=== PATIENT | female | born 1955 | race Caucasian/White ===

== ENCOUNTER 2016-08-04 11:59 | Emergency (ER) | payer MEDICARE, MEDICAID ==
[2016-08-04] MEDS ORDERED: Morphine Sulfate 2 MG/ML SYRINGE ONE (12:42)
[2016-08-04] MEDS ORDERED: Promethazine HCl 25 MG/ML VIAL ONE (12:42)
== END 2016-08-04 13:21 | disposition home or self-care (01) ==
LOC: BURERS 11:59
DX: M62.830 Muscle spasm of back (principal); G89.4 Chronic pain syndrome; J44.9 Chronic obstructive pulmonary disease, unspecified; I11.0 Hypertensive heart disease with heart failure; I50.9 Heart failure, unspecified; Z86.73 Personal history of transient ischemic attack (TIA), and cerebral infarction without residual deficits; F17.210 Nicotine dependence, cigarettes, uncomplicated; Z79.899 Other long term (current) drug therapy
CPT/HCPCS: 96372; J2270; J2550

== ENCOUNTER 2016-08-12 19:19 | Emergency (ER) | payer MEDICARE, MEDICAID ==
[2016-08-12 20:08] LABS: #Basophils 0.1 thou/uL (0.0-0.2); #Eosinphils 0.3 thou/uL (0.0-0.7); #Monocytes 0.7 thou/uL (0.11-0.59); %Basophils 0.9 % (0.0-1.0); %Eosinophils 4.4 % (0.0-10.0); %Monocytes 11.3 % (0.0-10.0); Hematocrit 34.2 % (36.0-47.0); Mean Platelet Volume 6.3 fL (7.4-10.4); Red Blood Cell (RBC) Count 3.83 mill/uL (4.20-5.40); White Blood Cell (WBC) Count 5.9 thou/uL (4.8-10.8)
[2016-08-12 20:26] LABS: ALT (SGPT) 19 U/L (0-55); AST (SGOT) 17 U/L (5-34); Alkaline Phosphatase 177 U/L (40-150); Anion Gap 15 mmol/L (10-20); BUN (Urea Nitrogen) 26 mg/dL (9.8-20.1); Bilirubin, Total 0.2 mg/dL (0.2-1.2); Calc. Creatinine Clearance 0 mL/min (70-130); Calcium 8.7 mg/dL (7.8-10.44); Carbon Dioxide 24 mmol/L (22-29); Chloride 106 mmol/L (98-107); Estimated GFR-MDRD 47; Globulin 3.4 g/dL (2.4-3.5); Protein, Total 6.6 g/dL (6.0-8.3)
[2016-08-12 20:30] LABS: Bilirubin Negative (Negative); Blood, Urine Trace (Negative); Glucose, Urine (Dipstick) Negative (Negative); Ketone, Urine Negative (Negative); Nitrite Positive (Negative); Protein, Urine (Dipstick) 100 mg/dL (Neg-Trace); Urobilinogen 0.2 mg/dL (0.2-1.0)
[2016-08-12 20:47] LABS: Bacteria/HPF 4+ HPF (None Seen); Oval Fat Bodies/HPF None Seen HPF (None Seen); Renal Epithelial None Seen HPF (0-3); Sperm/HPF None Seen HPF (None Seen); Squamous Epithelial None Seen HPF (0-3); Transitional Epithelial NONE SEEN HPF (0-3); Trichomonas/HPF None Seen HPF (None Seen); Yeast-All Forms None Seen HPF (None Seen)
[2016-08-12 20:48] LABS: Hyaline Casts/LPF NONE SEEN LPF (0-3 Hyaline)
[2016-08-12] MEDS ORDERED: Ciprofloxacin 500 MG TAB ONE (21:55)
[2016-08-12] MEDS ORDERED: cefTRIAXone\\ROCEPHIN 1 GM VIAL ONE (21:56)
== END 2016-08-12 22:55 | disposition home or self-care (01) ==
LOC: BURERS 19:19
DX: N39.0 Urinary tract infection, site not specified (principal); G89.29 Other chronic pain; J44.9 Chronic obstructive pulmonary disease, unspecified; I50.9 Heart failure, unspecified; I11.0 Hypertensive heart disease with heart failure; F17.210 Nicotine dependence, cigarettes, uncomplicated; Z86.73 Personal history of transient ischemic attack (TIA), and cerebral infarction without residual deficits
CPT/HCPCS: 80053; 81003; 81015; 85025; 87040; 87086; 96372; J0696

== ENCOUNTER 2016-08-17 15:16 | Outpatient (CLI) | payer MEDICARE, MEDICAID ==
--- NOTE | 2016-08-17 19:37 | RAD ---
There is a compression of one of the upper thoracic vertebra, approximately T4, with resulting dorsa l kyphosis. While it is difficult to compare exactly, the degree of compression seems comparable to the prior exam. There is a little bit of compression of the vertebrae above it, but again, the appea reese really has not changed overtime. The bones are osteopenic. I do not see new fractures. IMPRESSION: Upper thoracic compression as has been mentioned previously. No gross change since last year. The re sulting kyphotic deformity and amount that T3 rides anterior to T4 is impressive, but about the same as before. POS: HOME
--- NOTE | 2016-08-17 19:45 | RAD ---
CHEST TWO VIEWS: 08/17/16 Comparison is made with a 11/12/15 study. The heart is normal in size. COPD is noted as usual with flattening of the diaphragm. No acute infil trate or effusion was seen. The thoracic compression fracture is again noted as on prior films. The degree of compression and slippage of the upper vertebrae, approximately T3 on T4 seems substantial but not markedly different than before. IMPRESSION: 1. COPD with no acute findings. 2. Substantial thoracic compression though similar to last year's chest x-ray. POS: HOME
== END 2016-08-17 15:17 | disposition home or self-care (01) ==
LOC: BURRAD 15:16
PROVIDERS: ATTEND Family Medicine
DX: M54.6 Pain in thoracic spine (principal); J44.9 Chronic obstructive pulmonary disease, unspecified
CPT/HCPCS: 71020; 72070

== ENCOUNTER 2017-03-07 13:10 | Outpatient (CLI) | payer MEDICARE, MEDICAID ==
[2017-03-07 13:44] LABS: ALT (SGPT) 11 U/L (8-55); AST (SGOT) 15 U/L (5-34); Alkaline Phosphatase 97 U/L (40-150); Anion Gap 15 mmol/L (10-20); BUN (Urea Nitrogen) 33 mg/dL (9.8-20.1); Bilirubin, Total 0.3 mg/dL (0.2-1.2); Calc. Creatinine Clearance 0 mL/min (70-130); Calcium 9.5 mg/dL (7.8-10.44); Carbon Dioxide 23 mmol/L (22-29); Cardiac Risk 3.5 (Less than 4.5); Chloride 110 mmol/L (98-107); Cholesterol 183 mg/dl (< 200 Desired); Estimated GFR-MDRD 74; Glucose 82 mg/dL (70-105); HDL Cholesterol 53 mg/dL (>60 Neg Risk); LDL Cholesterol, Calculated 107 mg/dL; Potassium 5.6 mmol/L (3.5-5.1); Sodium 142 mmol/L (136-145); Triglycerides 113 mg/dL (Less than 150)
[2017-03-07 13:47] LABS: #Basophils 0.1 thou/uL (0.0-0.2); #Eosinphils 0.3 thou/uL (0.0-0.7); #Lymphocytes 2.1 thou/uL (1.20-3.40); #Monocytes 0.4 thou/uL (0.11-0.59); #Neutrophils 2.9 thou/uL (1.40-6.50); %Basophils 1.6 % (0.0-1.0); %Eosinophils 4.6 % (0.0-10.0); %Lymphocytes 36.5 % (21.0-51.0); %Monocytes 7.2 % (0.0-10.0); %Neutrophils 50.1 % (42.0-75.0); Hemoglobin 11.9 g/dL (12.0-16.0); Mean Corpuscular Hemoglobin 28.2 pg (27.0-31.0); Mean Corpuscular Volume 88.3 fl (81.0-99.0); Mean Platelet Volume 6.7 fL (7.4-10.4); Platelet Count 194 thou/uL (130-400); RBC Distribution Width 13.8 % (11.5-14.5); Red Blood Cell (RBC) Count 4.23 mill/uL (4.20-5.40); White Blood Cell (WBC) Count 5.7 thou/uL (4.8-10.8)
== END 2017-03-07 13:11 | disposition home or self-care (01) ==
LOC: HPCALD 13:10
PROVIDERS: ATTEND Family Medicine
DX: I10 Essential (primary) hypertension (principal)
CPT/HCPCS: 36415; 80053; 80061; 84443; 85025

== ENCOUNTER 2017-09-29 22:24 | Emergency (ER) | payer MEDICARE, MEDICAID ==
[2017-09-29 23:24] LABS: #Basophils 0.1 thou/uL (0.0-0.2); #Eosinphils 0.1 thou/uL (0.0-0.7); #Lymphocytes 0.7 thou/uL (1.20-3.40); #Monocytes 0.5 thou/uL (0.11-0.59); #Neutrophils 7.7 thou/uL (1.40-6.50); %Basophils 0.9 % (0.0-1.0); %Eosinophils 1.5 % (0.0-10.0); %Lymphocytes 7.9 % (21.0-51.0); %Monocytes 5.8 % (0.0-10.0); %Neutrophils 83.9 % (42.0-75.0); Hemoglobin 11.9 g/dL (12.0-16.0); Mean Corpuscular HGB CONC 32.4 g/dL (32.0-36.0); Mean Corpuscular Hemoglobin 27.1 pg (27.0-31.0); Mean Corpuscular Volume 83.6 fl (81.0-99.0); Mean Platelet Volume 7.6 fL (7.4-10.4); Platelet Count 163 thou/uL (130-400); RBC Distribution Width 13.9 % (11.5-14.5); Red Blood Cell (RBC) Count 4.41 mill/uL (4.20-5.40); White Blood Cell (WBC) Count 9.2 thou/uL (4.8-10.8)
[2017-09-29 23:28] LABS: PTT 34.9 SEC (22.9-36.1); Prothrombin Time 12.9 SEC (12.0-14.7)
--- NOTE | 2017-09-29 23:30 | RAD ---
PORTABLE CHEST: 09/29/17 Comparison is made with the 08/11/17 study done at [facility]. The lungs are hyperexpanded as usual. No lobar infiltrate or effusion was seen. There is actually les s prominence of the basilar markings today than before. There are no congestive changes or increase i n heart size. IMPRESSION: Hyperexpanded lungs but no acute findings otherwise. POS: HOME
[2017-09-29 23:33] LABS: Bilirubin Negative (Negative); Blood, Urine Moderate (Negative); Clarity Cloudy (Clear); Glucose, Urine (Dipstick) Negative (Negative); Leukocyte Large (Negative); Nitrite Positive (Negative); Protein, Urine (Dipstick) 100 mg/dL (Neg-Trace); Specific Gravity, Urine 1.015 (1.005-1.030); Urobilinogen 0.2 mg/dL (0.2-1.0); pH, Urine 5.5 (5.0-9.0)
[2017-09-29 23:38] LABS: ALT (SGPT) 12 U/L (8-55); AST (SGOT) 16 U/L (5-34); Alkaline Phosphatase 68 U/L (40-150); Anion Gap 16 mmol/L (10-20); BUN (Urea Nitrogen) 27 mg/dL (9.8-20.1); Bilirubin, Total 0.6 mg/dL (0.2-1.2); Calc. Creatinine Clearance 0 mL/min (70-130); Calcium 9.7 mg/dL (7.8-10.44); Carbon Dioxide 19 mmol/L (23-31); Chloride 108 mmol/L (98-107); Estimated GFR-MDRD 66; Globulin 3.1 g/dL (2.4-3.5); Glucose 97 mg/dL (80-115); Lipase 18 U/L (8-78); Potassium 5.5 mmol/L (3.5-5.1); Protein, Total 7.1 g/dL (6.0-8.3); Sodium 137 mmol/L (136-145)
[2017-09-29 23:39] LABS: CKMB 1.3 ng/mL (0-6.6); Troponin I Less than 0.010 ng/mL (< 0.028)
[2017-09-29 23:42] LABS: Bacteria/HPF 2+ HPF (None Seen); RBC/HPF 0-3 HPF (0-3); Squamous Epithelial 0-3 HPF (0-3)
[2017-09-29] MEDS ORDERED: Nitrofurantoin Monohyd/M-Cryst 100 MG CAP PO SCH (23:45)
[2017-09-29] MEDS ORDERED: cefTRIAXone\\ROCEPHIN 1 GM VIAL ONE (23:51)
== END 2017-09-30 00:33 | disposition home or self-care (01) ==
LOC: BURERS 22:24
DX: N12 Tubulo-interstitial nephritis, not specified as acute or chronic (principal); E87.5 Hyperkalemia; J43.9 Emphysema, unspecified; I11.0 Hypertensive heart disease with heart failure; I50.9 Heart failure, unspecified; F17.210 Nicotine dependence, cigarettes, uncomplicated; Z79.899 Other long term (current) drug therapy; Z86.73 Personal history of transient ischemic attack (TIA), and cerebral infarction without residual deficits
CPT/HCPCS: 71045; 80053; 81003; 81015; 82553; 83605; 83690; 83880; 84484; 85025; 85610; 85730; 87040; 87086; 87149; 93005; 96372; J0696

== ENCOUNTER 2018-03-26 15:41 | Inpatient (IN) | payer MEDICARE, MEDICAID ==
[2018-03-26] MEDS ORDERED: Albuterol Sulfate 2.5 mg/3 ml Neb ONE (16:45)
[2018-03-26] MEDS ORDERED: Magnesium Sulfate 2 GM/100 ML BAG ONE (16:45)
[2018-03-26 16:47] LABS: #Basophils 0.1 thou/uL (0.0-0.2); #Eosinphils 0.2 thou/uL (0.0-0.7); #Lymphocytes 1.1 thou/uL (1.20-3.40); #Monocytes 0.4 thou/uL (0.11-0.59); #Neutrophils 3.9 thou/uL (1.40-6.50); %Basophils 1.6 % (0.0-1.0); %Eosinophils 3.3 % (0.0-10.0); %Lymphocytes 18.5 % (21.0-51.0); %Monocytes 7.8 % (0.0-10.0); %Neutrophils 68.9 % (42.0-75.0); Hemoglobin 10.3 g/dL (12.0-16.0); Mean Corpuscular HGB CONC 32.2 g/dL (32.0-36.0); Mean Corpuscular Volume 83.7 fL (78.0-98.0); Mean Platelet Volume 8.4 fL (7.4-10.4); Platelet Count 184 thou/uL (130-400); RBC Distribution Width 13.5 % (11.5-14.5); Red Blood Cell (RBC) Count 3.82 mill/uL (4.20-5.40); White Blood Cell (WBC) Count 5.7 thou/uL (4.8-10.8)
[2018-03-26 16:55] LABS: ALT (SGPT) 16 U/L (8-55); AST (SGOT) 20 U/L (5-34); Albumin 3.6 g/dL (3.4-4.8); Alkaline Phosphatase 82 U/L (40-150); Anion Gap 14 mmol/L (10-20); BUN (Urea Nitrogen) 33 mg/dL (9.8-20.1); Bilirubin, Total 0.2 mg/dL (0.2-1.2); Calc. Creatinine Clearance 0 mL/min (70-130); Calcium 9.1 mg/dL (7.8-10.44); Carbon Dioxide 21 mmol/L (23-31); Chloride 111 mmol/L (98-107); Estimated GFR-MDRD 41; Globulin 2.9 g/dL (2.4-3.5); Glucose 83 mg/dL (80-115); Potassium 4.1 mmol/L (3.5-5.1); Protein, Total 6.5 g/dL (6.0-8.3); Sodium 142 mmol/L (136-145)
[2018-03-26 16:57] LABS: CKMB 1.8 ng/mL (0-6.6); Troponin I Less than 0.010 ng/mL (< 0.028)
[2018-03-26] MEDS ORDERED: Albuterol Sulfate 1.25 MG/3 ML NEB ONE (17:39)
[2018-03-26] MEDS ORDERED: Ketorolac Tromethamine 30 MG/ML VIAL ONE (17:39)
[2018-03-26] MEDS ORDERED: methylPREDNISolone Sod Succ/PF 125 MG/2 ML VIAL ONE (17:40)
[2018-03-26] MEDS ORDERED: Fentanyl 100 MCG/2 ML VIAL ONE (18:32)
--- NOTE | 2018-03-26 19:28 | RAD ---
PORTABLE CHEST: 03/26/2018 COMPARISON: 09/29/2017 FINDINGS: The lungs are hyperexpanded, consistent with COPD. No lobar consolidation or effusion is seen. Some minor lingular streaking may be scarring and is no different than before. There is no congestive ch moises. The trachea is midline. IMPRESSION: Chronic obstructive pulmonary disease but no acute finding. POS: HOME
[2018-03-26 19:29] VITALS: BMI 24.4
[2018-03-26] MEDS ORDERED: Acetaminophen/Codeine 30-300mg Tablet PO PRN (20:34)
[2018-03-26] MEDS ORDERED: Diazepam 5 MG TAB PO PRN (20:35)
[2018-03-26] MEDS ORDERED: Ondansetron ODT 4 MG TAB SL PRN (20:37)
[2018-03-26] MEDS ORDERED: Ondansetron HCl/PF 4 MG/2 ML Vial IVP PRN (20:37)
[2018-03-26] MEDS ORDERED: Acetaminophen 325 MG TAB PO PRN (20:37)
[2018-03-26 20:40] LABS: Clarity Cloudy (Clear); Leukocyte Large (Negative); Nitrite Negative (Negative)
[2018-03-26 20:41] LABS: Bilirubin Negative (Negative); Blood, Urine Negative (Negative); Glucose, Urine (Dipstick) Negative (Negative); Protein, Urine (Dipstick) 100 mg/dL (Neg-Trace); Urobilinogen 0.2 mg/dL (0.2-1.0)
[2018-03-26 20:44] LABS: Bacteria/HPF 4+ HPF (None Seen); Crystals/HPF None Seen HPF (Negative); Hyaline Casts/LPF NONE SEEN LPF (0-3 Hyaline); Other Casts/LPF None Seen LPF (0-3 Hyaline); Oval Fat Bodies/HPF None Seen HPF (None Seen); RBC/HPF None Seen HPF (0-3); Renal Epithelial None Seen HPF (0-3); Sperm/HPF None Seen HPF (None Seen); Squamous Epithelial None Seen HPF (0-3); Transitional Epithelial NONE SEEN HPF (0-3); Trichomonas/HPF None Seen HPF (None Seen); Yeast-All Forms None Seen HPF (None Seen)
[2018-03-26] MEDS ORDERED: Albuterol Sulfate 2.5 mg/3 ml Neb NEB PRN (20:46)
[2018-03-26] MEDS ORDERED: Dextrose 5 %-0.45 % NaCl 1,000 ML IV SCH (21:00)
[2018-03-26] MEDS ORDERED: Azithromycin 250 MG TAB PO SCH (21:15)
[2018-03-26] MEDS: methylPREDNISolone Sod Succ/PF 125 MG/2 ML VIAL IVP SCH (22:21)
--- NOTE | 2018-03-26 23:08 | HP ---
CHIEF COMPLAINT: Back pain and shortness of breath. HISTORY OF PRESENT ILLNESS: Ms. Howe is a 62-year-old female with past medical history of bilateral paraplegia status post bilateral total hip amputation ileal conduit for urine and colostomy, who presented to the emergency department this afternoon with a chief complaint of right upper thoracic intractable back pain. Upon presentation, patient was also experiencing shortness of breath and hypoxia. She has a history of COPD and uses oxygen at night and as needed during the day with activity. She is also a smoker. She has a history of osteoarthritis and thoracic compression fracture with recurrent right upper thoracic/scapular pain that worsens with deep inspiration. Apparently, this worsened over the last week and became intractable. She usually has her pain relieved with codeine and Valium, but ran out at home. She has medication intolerance to HYDROCODONE, which causes emesis. She has a nebulizer that she uses p.r.n. and she has a history of noncompliance with her medications and office visits. In the emergency department, the patient's pain was treated with Toradol and Fentanyl. She was given back to back neb treatments, IV Solu-Medrol, and magnesium sulfate with improvement of hypoxia and wheezing. She has been admitted for acute COPD exacerbation with acute on chronic hypoxia. PAST MEDICAL HISTORY: 1. Paraplegia, 2. Status post bilateral hip amputation. 3. Status post ileal conduit for urine. 4. Status post colostomy. 5. History of sacral decubitus ulcers, currently healed. 6. Chronic obstructive pulmonary disease on home O2. 7. Combined congestive heart failure. 8. Chronic kidney disease stage 3. 9. Hyperlipidemia. 10. Tobacco abuse. 11. History of thoracic compression fractures, T4 and T5. 12. Essential hypertension. 13. Cerebrovascular accident, right MCA distribution in 1998. 14. Degenerative joint disease. PAST SURGICAL HISTORY: 1. Tubal ligation. 2. Colostomy. 3. Left kidney. 4. Urostomy. 5. Right hip repair. 6. Bilateral hip amputations. 7. Removal of PEG tube on 08/2014. 8. Right carotid endarterectomy. SOCIAL HISTORY: The patient smokes approximately 3 cigarettes per day. Denies alcohol or illicit drug use. She lives at home with her daughter who is her primary caregiver and her grandchildren. CODE STATUS: She is a FULL CODE. FAMILY HISTORY: Her father and mother both had COPD, otherwise noncontributory. ALLERGIES: No known drug allergies. MEDICATIONS: 1. Anoro Ellipta 62.5/25 mcg inhaled once a day. 2. Lisinopril 20 mg once a day. 3. Amlodipine 5 mg once daily. 4. Carvedilol 6.25 one p.o. b.i.d. 5. Atorvastatin 10 mg p.o. q. day. 6. Valium 5 mg half to one b.i.d. p.r.n. for spasm. 7. Albuterol HFA 2 puffs q.4 hours p.r.n. for shortness of breath. 8. DuoNeb q.i.d. p.r.n. for shortness of breath. 9. Aspirin 325 mg p.o. q. day. REVIEW OF SYSTEMS: General: Denies fever, upper extremity weakness. Positive fatigue. HEENT: Denies any vision changes, sore throat, ear pain. Cardiovascular: Denies chest pain, palpitations, orthopnea, or PND. Respiratory: Positive dyspnea. No cough. Positive wheezing. No hemoptysis. Gastrointestinal: The patient has a history of colostomy. She denies constipation, abdominal pain, nausea, or vomiting. Genitourinary: The patient has a urostomy and denies any blood in her urine. Musculoskeletal: As per HPI. The right upper thoracic lower scapular pain is exacerbated by deep inspiration and improved with expiration and also putting manual pressure to the region. Lymphatic: Denies any lymphadenopathy or swelling. Skin: Currently her ulcers are healed, but she has a history of sacral decubitus ulcers. PHYSICAL EXAMINATION: VITAL SIGNS: Temperature 97.8, blood pressure 158/97, pulse 101, respirations 21, pain, 10/10, O2 sat 86% on room air and improved to 97% on 2 liters. GENERAL: Well-developed, thin, female in no acute distress, now at the bedside with nasal cannula in place. HEENT: Normocephalic, atraumatic. Pupils equal, round, reactive to light and accommodation. Extraocular muscles intact. Nares are patent without discharge. Tongue protrudes in the midline. NECK: Supple, without lymphadenopathy, thyromegaly, JVD or bruit. HEART: Regular rate and rhythm with normal S1, S2. No murmurs, clicks, rubs, or gallops. LUNGS: Diminished air entry throughout with rare inspiratory crackles to the left base. ABDOMEN: Positive bowel sounds in all four quadrants. Soft, nontender, nondistended, no masses, guarding, or rebound tenderness. The patient with a colostomy in place to the left upper quadrant of the abdomen and to the right upper quadrant she has the urostomy bag in place with clear yellow urine. EXTREMITIES: The patient bilaterally without lower limbs. No cyanosis or clubbing. No edema. SKIN: Nurse did have a complete skin assessment and shows no pressure ulcers. LABORATORY DATA: White count 5.7, 68% neutrophils, 18% lymphocytes, hemoglobin 10.3, hematocrit 32, platelets 184, D-dimer 0.41. Sodium 142, potassium 4.1, chloride 111, bicarbonate 21, BUN 33, creatinine 1.31, glucose 83, calcium 9.1, LFTs are normal, CK-MB 1.8, troponin I less than 0.010, BNP 133.4, albumin 3.6. Urinalysis significant for 100 protein, large leukocyte esterase, 4-6 wbc, 4+ bacteria. IMAGING: Chest x-ray shows COPD, but no acute findings. EKG shows sinus tachycardia with heart rate of 108 beats per minute, right atrial enlargement and nonspecific ST wave abnormalities. No ST elevation or depression. ASSESSMENT AND PLAN: 1. Acute on chronic hypoxic chronic obstructive pulmonary disease exacerbation. The patient will be admitted and placed on O2, we will order DuoNebs q.i.d. and place the patient on IV Solu-Medrol, Rocephin and Zithromax. We will repeat labs in the a.m. She will be discharged home when improved. She has O2 at home already. 2. History of thoracic compression fracture with intractable acute on chronic right upper thoracic back pain. We will control the patient's chronic obstructive pulmonary disease as this seems to exacerbate her pain. She can take codeine without GI upset, so will order Tylenol No. 3 p.r.n. pain. Give Valium p.r.n. for muscle relaxation. If she has a prolonged hospital stay, we will order PT and OT. 3. Chronic kidney disease stage 3. The patient's renal status is at her baseline. 4. Chronic congestive heart failure. The patient's home regimen will be continued. 5. Hyperlipidemia. The patient's statin will be continued. 6. Tobacco abuse. I have offered the patient nicotine patch and she defers at this time. Smoking cessation will be counseled and education given. 7. Paraplegia status post amputations bilateral lower extremity, colostomy and ileal conduit for urine. We will perform ostomy bag changes p.r.n. per protocol. 8. History of pressure ulcers. The patient will have periodic skin checks and will be repositioned hourly. We will do foam overlay of her mattress. 9. Prophylaxis. The patient will be placed on PPI. 10. Code status: The patient desires FULL CODE. MTDD
[2018-03-27] MEDS: Acetaminophen/Codeine 30-300mg Tablet PO PRN (03:15)
[2018-03-27 04:24] LABS: #Lymphocytes 0.3 thou/uL (1.20-3.40); #Neutrophils 2.9 thou/uL (1.40-6.50); %Basophils 0.7 % (0.0-1.0); %Eosinophils 0.3 % (0.0-10.0); %Lymphocytes 8.7 % (21.0-51.0); %Monocytes 1.4 % (0.0-10.0); %Neutrophils 88.9 % (42.0-75.0); Hemoglobin 9.6 g/dL (12.0-16.0); Mean Corpuscular HGB CONC 31.9 g/dL (32.0-36.0); Mean Corpuscular Hemoglobin 26.7 pg (27.0-31.0); Mean Corpuscular Volume 83.8 fL (78.0-98.0); Mean Platelet Volume 7.8 fL (7.4-10.4); Platelet Count 195 thou/uL (130-400); RBC Distribution Width 13.1 % (11.5-14.5); Red Blood Cell (RBC) Count 3.61 mill/uL (4.20-5.40); White Blood Cell (WBC) Count 3.3 thou/uL (4.8-10.8)
[2018-03-27 04:37] LABS: Anion Gap 15 mmol/L (10-20); BUN (Urea Nitrogen) 35 mg/dL (9.8-20.1); Calc. Creatinine Clearance 29 mL/min (70-130); Calcium 8.9 mg/dL (7.8-10.44); Carbon Dioxide 20 mmol/L (23-31); Chloride 109 mmol/L (98-107); Estimated GFR-MDRD 47; Glucose 211 mg/dL (80-115); Potassium 4.5 mmol/L (3.5-5.1); Sodium 139 mmol/L (136-145)
[2018-03-27] MEDS: Atorvastatin Calcium 10 MG TAB PO SCH (08:30)
[2018-03-27] MEDS: Carvedilol 3.125 MG TAB PO SCH (08:30)
[2018-03-27] MEDS: Aspirin 325 mg Enteric Coated Tablet PO SCH (08:33)
[2018-03-27] MEDS: Lisinopril 20 MG TAB PO SCH (08:34)
[2018-03-27] MEDS: methylPREDNISolone Sod Succ/PF 125 MG/2 ML VIAL IVP SCH (08:35)
[2018-03-27] MEDS: Azithromycin 250 MG TAB PO SCH (08:35)
[2018-03-27] MEDS ORDERED: cefTRIAXone\\ROCEPHIN 1 GM in Sodium Chloride 0.9% 100 ML IVPB SCH (09:00)
[2018-03-27] MEDS ORDERED: Amlodipine 5 MG TAB PO SCH (09:00)
[2018-03-27] MEDS ORDERED: Non-Formulary Item 1 EACH (Umeclidinium Brm/Vilanterol Tr [Anoro Ellipta] 1 INH) IH SCH (09:00)
[2018-03-27] MEDS: cloNIDine 0.1 MG TAB PO PRN (12:15)
[2018-03-28] MEDS: Carvedilol 3.125 MG TAB PO SCH (08:43)
[2018-03-28] MEDS: Aspirin 325 mg Enteric Coated Tablet PO SCH (08:43)
[2018-03-28] MEDS: predniSONE 20 MG TAB PO SCH ×2 (08:43→20:58)
[2018-03-28] MEDS: Azithromycin 250 MG TAB PO SCH (08:44)
[2018-03-28] MEDS: Amlodipine 5 MG TAB PO SCH (08:44)
[2018-03-28] MEDS: Atorvastatin Calcium 10 MG TAB PO SCH (08:44)
[2018-03-28] MEDS: Lisinopril 20 MG TAB PO SCH (08:45)
[2018-03-28] MEDS ORDERED: Polyethylene Glycol 3350 17 GM Packet PO SCH (10:45)
[2018-03-28] MEDS: Milk Of Magnesia 30 ML UDCUP PO PRN (15:59)
[2018-03-28] MEDS: Acetaminophen/Codeine 30-300mg Tablet PO PRN (16:21)
[2018-03-28] MEDS: Senokot S 8.6-50 MG TAB PO SCH (20:59)
[2018-03-29] MEDS: Milk Of Magnesia 30 ML UDCUP PO PRN (08:44)
[2018-03-29] MEDS: Aspirin 325 mg Enteric Coated Tablet PO SCH (08:45)
[2018-03-29] MEDS: Polyethylene Glycol 3350 17 GM Packet PO SCH (08:45)
[2018-03-29] MEDS: predniSONE 20 MG TAB PO SCH ×2 (08:45→22:19)
[2018-03-29] MEDS: Carvedilol 3.125 MG TAB PO SCH (08:46)
[2018-03-29] MEDS: Lisinopril 20 MG TAB PO SCH (08:46)
[2018-03-29] MEDS: Amlodipine 5 MG TAB PO SCH (08:46)
[2018-03-29] MEDS: Atorvastatin Calcium 10 MG TAB PO SCH (08:47)
[2018-03-29] MEDS: Senokot S 8.6-50 MG TAB PO SCH ×2 (08:51→22:19)
[2018-03-29] MEDS: Acetaminophen/Codeine 30-300mg Tablet PO PRN (12:30)
[2018-03-29] MEDS ORDERED: Lactulose 10 GM/15 ML Oral Solution ONE (22:13)
--- NOTE | 2018-03-29 22:37 | RAD ---
ABDOMEN 03/29/18 Supine and erect films show no free air beneath the diaphragm. There is a very large amount of fecal material in the colon which is mildly distended. The sensitivity of this study is low so it is hard f or me to assess whether there is any dilated small bowel or not. I believe most of what I see is colo n. Depending upon the patient's symptoms, CT may be needed to better assess bowel. Calcifications of concern were not seen, but would be easily missed due to the low sensitivity of the study. A good por tion of the chest is included in the series which showed a normal sized heart and clear lungs. IMPRESSION: Severe constipation. See comments above. POS: HOME
[2018-03-30] MEDS: cloNIDine 0.1 MG TAB PO PRN (05:46)
[2018-03-30 06:12] VITALS: TEMP 97.7
[2018-03-30 07:04] VITALS: BP 152/70
[2018-03-30] MEDS: Amlodipine 5 MG TAB PO SCH (09:47)
[2018-03-30] MEDS: predniSONE 20 MG TAB PO SCH (09:48)
[2018-03-30] MEDS: Senokot S 8.6-50 MG TAB PO SCH (09:48)
[2018-03-30] MEDS: Lisinopril 20 MG TAB PO SCH (09:48)
[2018-03-30] MEDS: Carvedilol 3.125 MG TAB PO SCH (09:48)
[2018-03-30] MEDS: Polyethylene Glycol 3350 17 GM Packet PO SCH (09:49)
[2018-03-30] MEDS: Atorvastatin Calcium 10 MG TAB PO SCH (09:49)
[2018-03-30] MEDS: Aspirin 325 mg Enteric Coated Tablet PO SCH (09:49)
--- NOTE | 2018-03-30 12:06 | DIS ---
DATE OF ADMISSION: 03/26/2018 DATE OF DISCHARGE: 03/30/2018 DISCHARGE DIAGNOSES: Chronic obstructive pulmonary disease exacerbation, acute on chronic intractable thoracic back pain, chronic kidney disease stage 3, congestive heart failure, hypertension, and constipation. PROCEDURES: On 03/26/2018 chest x-ray which showed chronic obstructive pulmonary disease, but no acute finding. On 03/29/2018, abdominal x-ray showed severe constipation. HOSPITAL COURSE: A 62-year-old female, chronic smoker with underlying chronic obstructive pulmonary disease, presented to [facility] Emergency Department with hypoxia and worsening respiratory status. This was in conjunction with her complaints of intractable thoracic back pain. She has a history of osteoarthritis and thoracic compression fractures with resultant flares of thoracic scapular pain. This pain is typically relieved with codeine and Valium. However, she was apparently out of these medications at home. In the emergency department, she was treated for pain along with initiation of Rocephin , Azithromycin, nebulizer treatments, IV Solu-Medrol and mag sulfate for compromised respiratory status. She was admitted to the floor for continued management of her COPD exacerbation and intractable pain. Both conditions gradually improved throughout her stay and she was effectively weaned off of her antibiotics along with transitioning from IV Solu-Medrol to p.o. prednisone. Her back pain steadily improved in conjunction with aforementioned pain medications. Unfortunately, she did develop constipation likely secondary to her provided pain medications. This, however, was ultimately relieved with a bowel regimen prior to discharge. During her stay, the patient's blood pressure was notably elevated. Thus, her amlodipine was increased from 5 mg to 10 mg. At this time, the patient's respiratory status has returned back to her baseline. Her pain is well controlled and she has had several bowel movements, enabling her to discharge to her home setting. She does have supplemental oxygen at home to continue. DISPOSITION: Patient will discharge home and follow up with Dr. Shah in a week. DISCHARGE MEDICATIONS: Include Tylenol with Codeine, Tylenol No. 3 p.o. q.6 hours p.r.n., Valium 5 mg half to 1 tab b.i.d. p.r.n., amlodipine 10 mg p.o. daily, lisinopril 20 mg p.o. daily, Anoro Ellipta 62.5-25 mcg inhaled daily, carvedilol 6.25 mg p.o. b.i.d., atorvastatin 10 mg p.o. at bedtime, albuterol inhaler 2 puffs q.4 hours p.r.n., DuoNebs q.i.d. p.r.n., and aspirin 325 mg p.o. daily. MTDD
== END 2018-03-30 13:40 | disposition home or self-care (01) | DRG 191 ==
LOC: BURERS 15:41 → BURMED 18:20
PROVIDERS: ADMIT Family Medicine; ATTEND Family Medicine
DX: J44.1 Chronic obstructive pulmonary disease with (acute) exacerbation (principal); I13.0 Hypertensive heart and chronic kidney disease with heart failure and stage 1 through stage 4 chronic kidney disease, or unspecified chronic kidney disease; I50.42 Chronic combined systolic (congestive) and diastolic (congestive) heart failure; G82.20 Paraplegia, unspecified; M54.6 Pain in thoracic spine; G89.29 Other chronic pain; N18.3 Chronic kidney disease, stage 3 (moderate); R09.02 Hypoxemia; F17.210 Nicotine dependence, cigarettes, uncomplicated; M19.90 Unspecified osteoarthritis, unspecified site; Z91.14 Patient's other noncompliance with medication regimen; Z99.81 Dependence on supplemental oxygen; E78.5 Hyperlipidemia, unspecified; Z86.73 Personal history of transient ischemic attack (TIA), and cerebral infarction without residual deficits; Z93.3 Colostomy status; K59.00 Constipation, unspecified; K59.03 Drug induced constipation; T40.2X5A Adverse effect of other opioids, initial encounter
CPT/HCPCS: 36415; 71045; 74019; 80048; 80053; 81003; 81015; 82553; 83880; 84484; 85025; 85379; 87040; 93005; 94640; 94760; 96365; 96375; J1885; J2920; J2930; J3010; J3475; J7506; J7611; J7620

== ENCOUNTER 2018-04-02 13:25 | Emergency (ER) | payer MEDICARE, MEDICAID ==
[2018-04-02] MEDS ORDERED: Fentanyl 100 MCG/2 ML VIAL ONE (14:29)
[2018-04-02 14:30] LABS: #Eosinphils 0.1 thou/uL (0.0-0.7); #Lymphocytes 0.6 thou/uL (1.20-3.40); #Monocytes 0.1 thou/uL (0.11-0.59); #Neutrophils 7.1 thou/uL (1.40-6.50); %Basophils 0.2 % (0.0-1.0); %Eosinophils 0.7 % (0.0-10.0); %Lymphocytes 7.4 % (21.0-51.0); %Monocytes 1.6 % (0.0-10.0); %Neutrophils 90.1 % (42.0-75.0); Hemoglobin 10.7 g/dL (12.0-16.0); Mean Corpuscular HGB CONC 32.7 g/dL (32.0-36.0); Mean Corpuscular Hemoglobin 27.1 pg (27.0-31.0); Mean Corpuscular Volume 82.9 fL (78.0-98.0); Platelet Count 233 thou/uL (130-400); RBC Distribution Width 13.6 % (11.5-14.5); Red Blood Cell (RBC) Count 3.93 mill/uL (4.20-5.40); White Blood Cell (WBC) Count 7.8 thou/uL (4.8-10.8)
[2018-04-02 14:48] LABS: ALT (SGPT) 25 U/L (8-55); AST (SGOT) 18 U/L (5-34); Albumin 3.6 g/dL (3.4-4.8); Alkaline Phosphatase 69 U/L (40-150); Anion Gap 13 mmol/L (10-20); BUN (Urea Nitrogen) 50 mg/dL (9.8-20.1); Bilirubin, Total 0.2 mg/dL (0.2-1.2); Calc. Creatinine Clearance 0 mL/min (70-130); Carbon Dioxide 26 mmol/L (23-31); Chloride 109 mmol/L (98-107); Estimated GFR-MDRD 61; Globulin 2.6 g/dL (2.4-3.5); Glucose 125 mg/dL (80-115); Potassium 5.4 mmol/L (3.5-5.1); Protein, Total 6.2 g/dL (6.0-8.3); Sodium 143 mmol/L (136-145)
[2018-04-02 14:51] LABS: CKMB 1.8 ng/mL (0-6.6); Troponin I Less than 0.010 ng/mL (< 0.028)
[2018-04-02] MEDS ORDERED: Ondansetron HCl/PF 4 MG/2 ML Vial ONE (15:04)
[2018-04-02] MEDS ORDERED: Furosemide 40 MG/4 ML VIAL ONE (15:33)
[2018-04-02] MEDS ORDERED: Ketorolac Tromethamine 30 MG/ML VIAL ONE (16:40)
--- NOTE | 2018-04-02 19:19 | RAD ---
ACUTE ABDOMEN SERIES: Date: 04-02-18 Comparison: 03-29-18 FINDINGS: The amount of fecal material in the colon has decreased since the prior exam though there is still a reasonably significant amount in it. A semi-opacified structure overlying the abdomen is presumed to be a colostomy or ileostomy bag. No free air is seen beneath the diaphragm. The lungs are clear excep t for some chronic basilar stranding. No acute infiltrate or effusion was seen. The heart size is nor mal. There appears to be a tiny 5 mm nodule in the right base which may even be calcified. This was p resent on prior studies. IMPRESSION: Overall improvement in the degree of constipation since the prior examination. Still abundant fecal m aterial remaining. No gross obstruction. POS: HOME
== END 2018-04-02 16:58 | disposition home or self-care (01) ==
LOC: BURERS 13:25
DX: J44.1 Chronic obstructive pulmonary disease with (acute) exacerbation (principal); M25.511 Pain in right shoulder; I11.0 Hypertensive heart disease with heart failure; I50.9 Heart failure, unspecified; F17.210 Nicotine dependence, cigarettes, uncomplicated; Z86.73 Personal history of transient ischemic attack (TIA), and cerebral infarction without residual deficits; Z79.899 Other long term (current) drug therapy; Z79.891 Long term (current) use of opiate analgesic
CPT/HCPCS: 74022; 80053; 82553; 83880; 84484; 85025; 93005; 94760; 96374; 96375; J1885; J1940; J2405; J3010; J7620

== ENCOUNTER 2018-06-19 12:26 | Outpatient (CLI) | payer MEDICARE, MEDICAID ==
--- NOTE | 2018-06-19 13:46 | RAD ---
CHEST 2 VIEWS: HISTORY: COPD. Preop. FINDINGS: Cardiac silhouette and pulmonary vasculature are unremarkable. Mediastinum is midline. Lungs are hy perinflated with flattening of each hemidiaphragm. No confluent airspace consolidation, pneumothorax , or pleural fluid. IMPRESSION: No active cardiopulmonary abnormalities are demonstrated. POS: [facility]
== END 2018-06-19 12:27 | disposition home or self-care (01) ==
LOC: BUREKG 12:26
PROVIDERS: ATTEND Family Medicine
DX: Z01.818 Encounter for other preprocedural examination (principal); J44.9 Chronic obstructive pulmonary disease, unspecified
CPT/HCPCS: 71046